=== PATIENT | male | born 1985 | race Caucasian/White ===

== ENCOUNTER 2021-01-19 15:13 | Emergency (ER) | payer SELFPAY ==
--- NOTE | 2021-01-19 15:15 | DI.RAD_ITS ---
EXAM: XR TOE LT GREAT CLINICAL HISTORY: pain s/p dropping large item on toe. TECHNIQUE: 2D digital imaging was performed. COMPARISON: No exams were available for comparison FINDINGS: There is no evidence of fracture nor dislocation. No radiopaque foreign body. No osseous lesions. No erosions. IMPRESSION: No fracture evident. DATA REPOSITORY: RADIATION DOSE DELIVERED:
[2021-01-19 15:18] VITALS: BP 131/93; PULSE 64; RESP 17; TEMP 36.5
--- NOTE | 2021-01-19 15:30 | ED.GENADUL_ITS ---
Discharge Plan Disposition Patient Disposition: HOME Condition: Stable Discharge Details Clinical Impression: Contusion of left great toe without damage to nail Primary Care Provider: None,None ED Provider: Matehus Ordonez Home Meds and New Rx's Prescriptions: Continued ibuprofen 800 MG tablet 800 mg PO TID Qty: 30 RF: 0 No Action cyclobenzaprine 10 MG tablet 10 mg PO BID Qty: 20 RF: 0 hydrocodone-acetaminophen 1 EACH tablet 1 - 2 ea PO Q4H PRN PRNQty: 20 RF: 0 Discharge Instructions Instructions: Contusion in Adults (ED) Additional Instructions: if pain continues in a week follow up with your primary care provider you can take 1000mg tylenol and 600mg ibuprofen every 6 hours as needed for pain Medical Decision Making 35 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 Denies falling or other injuries. He has no pain in the left ankle or mid foot, and only has pain in the left big toe. Has mild redness of the distal left big toe, normal sensation and can fully move the toe. Has pain with palpation to the distal left big toe, no tenderness elsewhere and normal pulses. Suspect contusion but will xray to evaluate for possible fracture xray unremarkable, suspect bone contusion, will discharge and advised to follow up with pcp if pain continues in a week Differential Diagnosis Differential Diagnosis: contusion, fracture, dislocation Imaging Data Radiologic Study: Attestation: I personally reviewed and interpreted this imaging study as follows: Imaging: X-Ray Radiologist's impression: no acute findings HPI General Mode of arrival: ambulatory . Date/Time Provider Initiated Documentation: 01/19/21 15:23 . Limitations to Documentation: no limitations . Information obtained by: patient . History of Present Illness 35 year old M presents to the emergency department with the chief complaint of left big toe pain, described as moderate, and it has been constant. Rest improves symptom(s), Other factors that worsen symptoms (walking on it) . Patient notes no other symptoms.. Related Data Home Medications Medication Instructions Recorded Confirmed cyclobenzaprine 10 mg PO BID #20 tab 12/24/13 12/26/13 ibuprofen 800 mg PO TID #30 tablet 12/24/13 12/26/13 hydrocodone-acetaminophen 1 - 2 ea PO Q4H PRN PRN #20 tablet 12/26/13 Previous Rx's Medication Instructions Recorded cyclobenzaprine 10 mg PO BID #20 tab 12/24/13 ibuprofen 800 mg PO TID #30 tablet 12/24/13 hydrocodone-acetaminophen 1 - 2 ea PO Q4H PRN PRN #20 tablet 12/26/13 Allergies Allergy/AdvReac Type Severity Reaction Status Date / Time No Known Allergies Allergy Unverified 12/24/13 09:12 General Stated Complaint: Orthopedic FRANKO: 4 Review of Systems All systems reviewed & are unremarkable except as noted in HPI and below Constitutional Constitutional: Denies chills, Denies fever(s) and Denies weakness Cardiovascular Cardiovascular: Denies chest pain and Denies dyspnea Respiratory Respiratory: Denies cough and Denies dyspnea Gastrointestinal Gastrointestinal: Denies abdominal pain, Denies nausea and Denies vomiting Neurologic Neurologic: Denies weakness Psychiatric Psychiatric: Denies depression PFSH Social History Smoking/Tobacco Use Status: Never Smoking risk assessment performed?: Yes Drug use: Never Substance use type: does not use Do you feel safe at home: Yes Do you feel safe in your relationship?: Yes Exam Const General: no acute distress Orientation: alert HENMT Head: normal to inspection Ears: external ears normal General nose exam: external nose normal Mouth: moist mucous membranes Eyes General: appearance normal, both eyes and all related structures Neck Neck: normal visual inspection Resp Effort & Inspection: normal respiratory effort and able to speak in complete sentences Cardio Rate: regular rate Skin General skin exam: no rashes or lesions noted Neuro General: patient alert and patient oriented x3 Extrem General: capillary refill normal Psych Mental Status: mental status grossly normal Course Vital Signs Vital signs: Vital Signs Temperature 36.5 C 01/19/21 15:18 Pulse 64 01/19/21 15:18 Respiratory Rate 17 01/19/21 15:18 Blood Pressure 131/93 H 01/19/21 15:18 Temperature 36.5 C 01/19/21 15:18 Temperature Source Temporal Artery Scan 01/19/21 15:18 Pulse 64 01/19/21 15:18 Respiratory Rate 17 01/19/21 15:18 Respiratory Effort 01/19/21 15:21 Blood Pressure 131/93 H 01/19/21 15:18 Blood Pressure Position Sitting 01/19/21 15:18 Oxygen Delivery Method Room Air 01/19/21 15:18 Oxygen Flow Rate 0 01/19/21 15:18 Pain Level 2 01/19/21 15:22 Comment 01/19/21 15:18
[2021-01-19] MEDS: Ibuprofen 600 MG TAB PO (15:32)
== END 2021-01-19 16:17 | disposition home or self-care (01) ==
LOC: ER 16:16
PROVIDERS: Emergency Provider Emergency Medicine; PCP Family Medicine
DX: S90.112A Contusion of left great toe without damage to nail, initial encounter (principal); W20.8XXA Other cause of strike by thrown, projected or falling object, initial encounter
CPT/HCPCS: 99283; 73660

== ENCOUNTER 2023-01-06 14:01 | Emergency (ER) | payer OTHER, SELFPAY ==
[2023-01-06 14:07] VITALS: BP 137/79; PULSE 80; RESP 18; TEMP 36.6; O2SAT 97
--- NOTE | 2023-01-06 14:23 | W.ED.GENAD ---
Discharge Plan Disposition Patient Disposition: Home Condition: Improving Discharge Details Clinical Impression: Thoracic back pain, Lumbar back pain Primary Care Provider: Emi,Local ED Provider: Elyssa Mendoza Home Meds and New Rx's Prescriptions: New methocarbamol 500 mg tablet 500 mg PO Q6H PRN (Reason: muscle spasm) Qty: 14 0RF prednisone 20 mg tablet See Rx Instructions .ROUTE .COMPLEX Qty: 18 0RF Rx Instructions: Take 3 tabs daily for 3 days, then 2 tabs daily for 3 days, then 1 tab daily for 3 days. Continued tizanidine 2 mg tablet 2 mg PO HS PRN (Reason: muscle spasticity) Qty: 20 0RF Rx Instructions: Si-2 tabs po at HS PRN. ibuprofen 800 MG tablet 800 mg PO TID Qty: 30 0RF Discharge Instructions Instructions: Back Pain (ED), Spondylolisthesis (ED) Additional Instructions: The CT scan of your thoracic spine showed no acute fracture. The CT scan of your lumbar spine showed grade 1 spondylolisthesis of L5 on S1 which is a type of slippage of the vertebrae in your spine forward onto the bone below it. This can be secondary to an new or old injury or potentially a genetic predisposition for this condition. Alternate ice and heat to the affected area(s) several times daily for 20 minutes at a time. Alternate tylenol and motrin as needed and directed for pain. Take the oxycodone you were given for home as needed and directed for pain not relieved with Tylenol or Motrin. Prescriptions for steroids and muscle relaxers have been sent electronically to your pharmacy to take as directed. Follow-up with your scheduled appointment with occupational medicine this week. Return immediately to the emergency department if you develop any worsening or new concerning symptoms such as worsening pain, loss of bowel or bladder function, inability to ambulate or any other concerns. Discharge Data Discharge Date/Time-TO BE ENTERED AT DEPARTURE: 01/06/23 18:20 Discharge Physician: Elsysa Mendoza Medical Decision Making [id number] -- 37-year-old male with report of original blunt injury to his back status post mechanical fall on December 11, 2022 with reported outpatient negative T-spine x-rays presents with worsening of his mid back pain after hearing a crack while turning while sitting in a chair today. Also has had midline L-spine pain since his original injury. Also admits to paresthesias in his toes and left hand since his original injury and states this is no worse today. No other cauda equina symptoms. Has been followed by occupational medicine with no relief with NSAIDs, Flexeril, tizanidine. Vitals within normal limits. Patient appears uncomfortable but nontoxic. He has tenderness palpation to his mid line lower T-spine and midline lumbar spine. He also has tenderness palpation to his left thoracic paraspinal region. There is no evidence of rash, cellulitis or trauma. He has no focal deficits. History and presentation does not appear consistent with cauda equina syndrome although discussed the possibility of disc herniation with his feet paresthesias. He has no midline C-spine tenderness but has had radiation of pain to his bilateral cervical paraspinal region. He has no focal deficits in his upper or lower extremities. Do not see an indication for CT C-spine imaging but will proceed with CT T and L-spine imaging to rule out obvious fracture or possible disc herniation. Discussed that patient will likely need an MRI of his T or L-spine if his paresthesias or pain persists or worsens. Will give a dose of IM Toradol, oral prednisone, oral Valium and oxycodone and reassess. 1800 -- delay in disposition due to critical patient in the ED. CT thoracic spine no acute findings. CT lumbar spine notes grade 1 spondylolisthesis of L5 on S1 secondary to L5 spondylolysis in addition to disc bulge at L4-5 and L5-S1. Pt reassessed and he says his pain is better and he feels comfortable going home. Prescriptions for steroids and muscle relaxer sent electronically to his pharmacy. He was given an oxycodone bottle to go. Patient has an appointment with occupational medicine this week. Discussed that he may need an MRI if symptoms do not improve or worsen. Usual and customary return precautions given prior to discharge. Medical Records Medical records reviewed: Yes I reviewed the patient's medical records. Imaging Data Radiologic Study: Radiologist's impression: CT Thoracic Spine Without Contrast Exam date and time: 01/06/2023 3:25 PM Age: 37 years old Clinical indication: Other: Mid t-l spine pain, R/O FX; ; Other: Fall on back 1 mo ago, new pain mid tspine today TECHNIQUE: Imaging protocol: Computed tomography of the thoracic spine without contrast. COMPARISON: No relevant prior studies available. FINDINGS: Bones/joints: No acute fracture. Normal alignment. Small osteophytes and mild disc space narrowing in the upper thoracic spine. No obvious disc contour abnormalities. No severe spinal canal stenosis. No significant neural foraminal narrowing. Soft tissues: Unremarkable. Lungs: The visualized lungs are clear. IMPRESSION: No acute findings CT Lumbar Spine Without Contrast Exam date and time: 01/06/2023 3:25 PM Age: 37 years old Clinical indication: Other: Mid t-l spine pain, R/O FX; ; Other: Fall on back 1 mo ago, new pain mid tspine today TECHNIQUE: Imaging protocol: Computed tomography of the lumbar spine without contrast. COMPARISON: No relevant prior studies available. FINDINGS: Bones/joints: No acute fracture. 3 mm anterolisthesis of L5 on S1. Bilateral L5 spondylolysis. Disc bulge at L4-L5 and L5-S1. No significant spinal stenosis. No significant neural foraminal narrowing. Soft tissues: Unremarkable. IMPRESSION: 1. ? No acute fracture. 2. ? Grade 1 spondylolisthesis of L5 on S1 secondary to L5 spondylolysis HPI General Mode of arrival: ambulatory. Date/Time Provider Initiated Documentation: 01/06/23 14:21. Limitations to Documentation: no limitations. Information obtained by: patient. HPI Narrative: Patient is a 37-year-old male who presents with worsening of his mid back pain status post an injury 2 weeks ago after sitting today and turning and feeling a crack in his mid back. Patient states he was sitting in a chair today and turned slightly sideways and felt a crack in his mid back. He denies any chest pain, difficulty breathing or abdominal pain. Patient states he works for [employer] and on December 11 of last month he slipped on an [employer] driveway while working and landed on his back. He states 1 week later he was seen at [facility] and had negative thoracic spine x-rays. He states he then followed up with occupational medicine who placed him on cyclobenzaprine and NSAIDs without relief. Patient states he recently followed up again and was placed on tizanidine without relief. Patient states he has been having difficulty sleeping or finding a comfortable position due to his back pain. Patient states his initial pain last month is in his mid T-spine and also in his mid L-spine. He states she was having tingling in his left foot last month and is now feeling tingling in both toes. He is also admitting to tingling in his left hand. Patient has not taken any medication for pain today. He denies any fever, bowel or bladder incontinence, saddle anesthesia, leg pain. Related Data Home Medications Medication Instructions Recorded Confirmed ibuprofen 800 mg tablet 800 mg PO TID #30 tabs 12/24/13 01/06/23 tizanidine 2 mg tablet 2 mg PO HS PRN muscle spasticity 12/26/22 01/06/23 #20 tabs methocarbamol 500 mg tablet 500 mg PO Q6H PRN muscle spasm #14 01/06/23 tabs prednisone 20 mg tablet See Rx Instructions .Route 01/06/23 .COMPLEX #18 tabs Previous Rx's Medication Instructions Recorded ibuprofen 800 mg tablet 800 mg PO TID #30 tabs 12/24/13 tizanidine 2 mg tablet 2 mg PO HS PRN muscle spasticity 12/26/22 #20 tabs methocarbamol 500 mg tablet 500 mg PO Q6H PRN muscle spasm #14 01/06/23 tabs prednisone 20 mg tablet See Rx Instructions .Route 01/06/23 .COMPLEX #18 tabs Allergies Allergy/AdvReac Type Severity Reaction Status Date / Time No Known Allergies Allergy Verified 01/06/23 14:13 General Stated Complaint: Nk/Back Pain FRANKO: 3 Review of Systems All systems reviewed & are unremarkable except as noted in HPI and below Constitutional Constitutional: Reports as per HPI, Denies chills and Denies fever(s) Eyes Eyes: Denies blurry vision ENT Ears, Nose, Mouth, and Throat: Denies dizziness, Denies sore throat and Denies throat swelling Cardiovascular Cardiovascular: Denies chest pain and Denies dyspnea Respiratory Respiratory: Denies cough and Denies dyspnea Gastrointestinal Gastrointestinal: Denies abdominal pain, Denies diarrhea and Denies vomiting Genitourinary Genitourinary: Denies hematuria and Denies dysuria Musculoskeletal Musculoskeletal: Reports back pain, Denies numbness and Reports tingling (b/l toes, fingers of left hand for 3 weeks) Integumentary/Breasts Skin/Breast: Denies lesions and Denies rash Neurologic Neurologic: Denies dizziness, Denies localized weakness, Denies numbness and Reports tingling (b/l toes, fingers of left hand for 3 weeks) Allergic/Immunologic Allergic/Immunologic: Denies throat swelling PFSH All Active Problems (Updated 01/06/23 @ 18:03 by Elyssa Mendoza DO) Acute chest wall pain (Acute) Strain of left groin (Acute) Lumbar back pain (Acute) Lumbar pain with radiation down leg (Acute) Thoracic back pain (Acute) Contusion of left great toe without damage to nail (Acute) Medical History (Updated 01/06/23 @ 18:03 by Elyssa Mendoza DO) No significant past medical history Surgical History (Updated 01/06/23 @ 15:04 by Elyssa Mendoza DO) H/O wisdom tooth extraction Social History Smoking/Tobacco Use Status: Never Smoking risk assessment performed?: Yes Drug use: Never Substance use type: does not use Do you feel safe at home: Yes Do you feel safe in your relationship?: Yes Exam Const General: cooperative, uncomfortable and no acute distress Orientation: alert, awake and oriented x3 HENMT Head: normal to inspection Face and sinus: normal facial exam Eyes General: appearance normal, both eyes and all related structures Pupils: PERRL EOM: EOM intact bilaterally Neck Neck: normal visual inspection and No submandibular swelling Lymphatic: no lymphadenopathy noted Chest Chest: normal inspection of the chest and no tenderness Resp Effort & Inspection: normal respiratory effort and able to speak in complete sentences Auscultation: clear to auscultation bilaterally Cardio Rate: regular rate Rhythm: regular rhythm GI Inspection: normal to inspection Palpation: soft, not firm, not rigid and nontender Auscultation: hypoactive bowel sounds Male General Exam: Yes normal external exam Back/Spine/Pelvis Thoracic/Lumbar Spine: thoracic and lumbar spine normal to inspection Pelvis: no pain with anterior-posterior compression Back/spine/pelvis image: 1. Tenderness to palpation. No erythema, edema, ecchymosis, rash, lesions or step-off. 2. Additional localized area of tenderness to palpation without rash, cellulitis or evidence of trauma. 3. Tenderness to palpation. No evidence of rash, cellulitis or trauma. Skin General skin exam: no rashes or lesions noted Neuro General: patient alert, patient awake and patient oriented x3 Cognition: normal cognition Speech: speech normal Motor: muscle tone normal throughout and strength 5/5 throughout Sensory Exam: no sensory deficits noted DTR's: Rt Patellar: 1+, Lt Patellar: 1+, Rt Ankle: 1+ and Lt Ankle: 1+ Plantar Reflexes: Equivocal: bilateral (negative babinski b/l ) Extrem General: normal to inspection, full ROM, capillary refill normal, no calf tenderness bilaterally and no edema Other: B/L DP/PT pulses intact. Psych Appearance: grossly normal Mental Status: mental status grossly normal Speech and Movement: speech and movement normal Affect: normal affect Course Vital Signs Vital signs: Vital Signs Temperature 98 F 01/06/23 14:07 Pulse 80 01/06/23 14:07 Respiratory Rate 18 01/06/23 14:07 Blood Pressure 137/79 01/06/23 14:07 Pulse Oximetry 97 01/06/23 14:07 Temperature 98 F 01/06/23 14:07 Temperature Source Oral 01/06/23 14:07 Pulse 80 01/06/23 14:07 Respiratory Rate 18 01/06/23 14:07 Respiratory Effort Normal, Non-Labored 01/06/23 14:14 Blood Pressure 137/79 01/06/23 14:07 Blood Pressure Position Sitting 01/06/23 14:07 Pulse Oximetry 97 01/06/23 14:07 Oxygen Delivery Method Room Air 01/06/23 14:07 Oxygen Flow Rate 0 01/06/23 14:07 PAWSS Have you Been Recently Intoxicated or Drunk Within the Last 30 days?: No Have you Ever Experienced Previous Episodes of Alcohol Withdrawal?: No Have you ever Experienced Withdrawal Seizures?: No Have you ever Experienced Delirium Tremens(DT)s?: No Have you ever undergone Alcohol Rehabilitation Treatment (i.e, inpt ot outpatient treatment programs)?: No Have you ever Experienced Blackouts?: No Have you ever Combined Alcohol with other Downers within the last 90 days?: No Have you ever Combined Alcohol with any other Substance of Abuse during the last 90 days?: No Positive Blood Alcohol level on Presentation? [PCS.BAL]: No Evidence of Increased Autonomic Activity (i.e. HR>120, tremor, sweating, agitation, nausea)?: No Result: 0
--- NOTE | 2023-01-06 14:45 | DI.CT_ITS ---
Exam(s) CT THORACIC LUMBAR SPINE WO EXAM: CT THORACIC LUMBAR SPINE WO CLINICAL HISTORY: mid T-L spine pain, r/o fx;. TECHNIQUE: Imaging Protocol: Axial computed tomography images with coronal and sagittal reformatted images were created and reviewed. CONTRAST MATERIAL: Intravenous: None Oral: None COMPARISON: No exams were available for comparison FINDINGS: THORACIC SPINAL COLUMN: No evidence of fracture nor listhesis. No facet malalignment. No prominent facet degenerative changes. No compromise of the spinal canal. Anterior osseous lipping noted at T5 -6 level indicating element of degenerative disc disease at this level. LUMBOSACRAL SPINAL COLUMN: No compression fractures. There are bilateral pars defects at L5 level. There is mild anterolisthesis of L5 upon S1 and mild disc space narrowing at this level. There is ap proximately 7 millimeters anterior slippage of L5 upon S1. No other levels of listhesis. No promine nt facet arthropathy. No facet malalignment. IMPRESSION: 1. No significant osseous findings in the thoracic spinal column. 2. In the lumbosacral spine there is 7 millimeters anterolisthesis L5 upon S1 due to bilateral pars d efects at L5 level. No acute fractures evident. RADIATION DOSE DELIVERED: 1,347.21mGy.cm Total DLP DATA REPOSITORY: All CT scans at this facility are submitted to the National Radiology Data Registry (NRDR) Dose Index Registry (DIR) with the [employer] (ACR). RADIATION OPTIMIZATION: All CT scans at this facility use at least one of these dose optimization te chniques: automated exposure control; mA and/or kV adjustment per patient size (includes targeted exa ms where dose is matched to clinical indication); or iterative reconstruction.
[2023-01-06] MEDS: Ketorolac 60 MG/2 ML VIAL IM (15:09)
[2023-01-06] MEDS: predniSONE 20 MG TAB 60 MG PO (15:09)
[2023-01-06] MEDS: oxyCODONE 5 MG TAB PO (15:09)
[2023-01-06] MEDS: diazePAM 5 MG TAB PO (15:10)
--- NOTE | 2023-01-06 15:59 | DI.VRAD_ITS ---
PROCEDURE INFORMATION: Exam: CT Thoracic Spine Without Contrast Exam date and time: 01/06/2023 3:25 PM Age: 37 years old Clinical indication: Other: Mid t-l spine pain, R/O FX; ; Other: Fall on back 1 mo ago, new pain mid tspine today TECHNIQUE: Imaging protocol: Computed tomography of the thoracic spine without contrast. COMPARISON: No relevant prior studies available. FINDINGS: Bones/joints: No acute fracture. Normal alignment. Small osteophytes and mild disc space narrowing in the upper thoracic spine. No obvious disc contour abnormalities. No severe spinal canal stenosis. No significant neural foraminal narrowing. Soft tissues: Unremarkable. Lungs: The visualized lungs are clear. IMPRESSION: No acute findings PROCEDURE INFORMATION: Exam: CT Lumbar Spine Without Contrast Exam date and time: 01/06/2023 3:25 PM Age: 37 years old Clinical indication: Other: Mid t-l spine pain, R/O FX; ; Other: Fall on back 1 mo ago, new pain mid tspine today TECHNIQUE: Imaging protocol: Computed tomography of the lumbar spine without contrast. COMPARISON: No relevant prior studies available. FINDINGS: Bones/joints: No acute fracture. 3 mm anterolisthesis of L5 on S1. Bilateral L5 spondylolysis. Disc bulge at L4-L5 and L5-S1. No significant spinal stenosis. No significant neural foraminal narrowing. Soft tissues: Unremarkable. IMPRESSION: 1. No acute fracture. 2. Grade 1 spondylolisthesis of L5 on S1 secondary to L5 spondylolysis Dictated and Authenticated by: Julio Haynes MD. Ordering:RYAN Bergeron MD
[2023-01-06] MEDS: Methocarbamol 500 MG TAB 1000 MG PO (18:15)
[2023-01-06 18:18] VITALS: BP 126/68; PULSE 82; RESP 18; TEMP 36.9; O2SAT 98
== END 2023-01-06 18:20 | disposition home or self-care (01) ==
PROVIDERS: Emergency Provider Physician Assistant
DX: M54.6 Pain in thoracic spine (principal); M54.59 Other low back pain
CPT/HCPCS: 96372; 99284; 72128; 72131; J1885; J7512

== ENCOUNTER 2023-01-17 12:10 | Emergency (ER) | payer OTHER, SELFPAY ==
--- NOTE | 2023-01-17 12:00 | RT.EKG_ITS ---
APPROVED REPORT Exam: Resting ECG Reason for Exam: rapid heart rate Patient Location: E HR:89 bpm ECG Measurements Heart Rate 89 AXIS IL 128 P 20 QRSd 98 QRS -36 QT 338 T 9 QTc 412 Conclusion Sinus rhythm...normal P axis, V-rate 60- 99. Sinus. No STEMi. I have reviewed and interpreted ECG and agree with software generated interpretation.
[2023-01-17 12:23] VITALS: BP 150/96; PULSE 87; RESP 18; TEMP 36.8; O2SAT 93
[2023-01-17 12:30] VITALS: RESP 16
[2023-01-17 12:39] VITALS: BP 105/66
[2023-01-17 12:42] VITALS: BP 117/79
--- NOTE | 2023-01-17 12:45 | DI.CT_ITS ---
Exam(s) CT HEAD CERVICAL SPINE WO EXAM: CT HEAD CERVICAL SPINE WO CLINICAL HISTORY: Headache, Neck Pain. TECHNIQUE: Imaging Protocol: Axial computed tomography images with coronal and sagittal reformatted images were created and reviewed COMPARISON: No exams were available for comparison FINDINGS: Head CT Ventricles and Extra axial spaces: Normal in size and morphology for the patient's age. Hemorrhage: None. Cerebral parenchyma: Normal. Midline shift: None. Brainstem/Cerebellum: Normal. Calvarium: Normal. Visualized Paranasal sinuses/Mastoids: Clear. Soft tissue swelling over right scalp. Cervical Spine CT BONES: Vertebral body heights are maintained. Alignment is normal. There is no evidence of acute frac ture. Mild degenerative disc changes and facet degenerative changes are seen . SOFT TISSUES: No paraspinal hematoma. The airway appears intact. No pneumothorax is seen at the lung apices. IMPRESSION: Head CT: No acute abnormality. C-spine CT: Degenerative changes, no acute abnormality. RADIATION DOSE DELIVERED: 1,647.49mGy.cm Total DLP DATA REPOSITORY: All CT scans at this facility are submitted to the National Radiology Data Registry (NRDR) Dose Index Registry (DIR) with the [employer] (ACR). RADIATION OPTIMIZATION: All CT scans at this facility use at least one of these dose optimization te chniques: automated exposure control; mA and/or kV adjustment per patient size (includes targeted exa ms where dose is matched to clinical indication); or iterative reconstruction.
--- NOTE | 2023-01-17 12:55 | W.ED.GENAD ---
Discharge Plan Disposition Patient Disposition: Home Condition: Stable Discharge Details Clinical Impression: Degenerative joint disease of cervical spine, Headache, tension-type ED Provider: Jesusita Tolliver Home Meds and New Rx's Prescriptions: Continued amitriptyline 25 mg tablet 25 mg PO QHS Qty: 25 0RF tramadol 100 mg tablet 100 mg PO BID PRN (Reason: pain) Qty: 20 0RF ibuprofen 800 MG tablet 800 mg PO TID Qty: 30 0RF methocarbamol 500 mg tablet 500 mg PO Q6H PRN (Reason: muscle spasm) Qty: 14 0RF prednisone 20 mg tablet See Rx Instructions .ROUTE .COMPLEX Qty: 18 0RF Rx Instructions: Take 3 tabs daily for 3 days, then 2 tabs daily for 3 days, then 1 tab daily for 3 days. Discharge Instructions Instructions: Degenerative Disc Disease (ED), General Headache (ED) Additional Instructions: You may try topical Voltaren or diclofenac cream which you can get [id number]. Please take Tylenol or Ibuprofen with food every 4-6 hours as needed for pain and swelling. CT is largely within normal limits there is some degenerative changes noted on the cervical spine or your neck bones, this is just mild amount of arthritis. EKG and labs are largely within normal limits regarding your heart. Follow up with primary care provider in 3-5 days. Return to ED sooner if any worsening or concerns. Increase oral fluids. You are placed on care management list to assist you in getting a follow-up appointment with primary care provider. Stand Alone Forms: Work Release Discharge Data Discharge Date/Time-TO BE ENTERED AT DEPARTURE: 01/17/23 15:55 Medical Decision Making 37-year-old male presents to the ER with a chief complaint of headache frontal pressure type headache which began while at physical therapy earlier today. He also reports some sharp left arm pain and tingling. He reports that approximately a week ago he was seen for a lumbar back strain after falling and landing on his buttocks on some ice. He did have a CT T and L-spine at that time. Has been placed on oxycodone and muscle relaxers with little to no relief. He reports that today he was in the pool for physical therapy and began having pressure across his forehead. He denies any nausea vomiting no abdominal pain no fever or chills. CT head C-spine without contrast ordered, CBC CMP urinalysis, troponin ordered. CBC shows white blood cell count of 12.66, please in BUN 20 creatinine 1.1 GFR 88 glucose 111 ALT slightly elevated at 68 troponin less than 50 urinalysis within normal limits drug screen negative except for tricyclic antidepressants which patient is on. Toradol 30 mg IV ordered. Patient has remained hemodynamically stable alert and oriented and ambulatory while here in the department. Patient does have some degenerative changes noted on his C-spine. This time I do not think that serial troponins are necessary due to age less than 40 and no significant cardiac history. Patient does have a family history is father of an HI at age 50. Discussed results with patient who verbalized understanding discussed home care and follow-up care. This text was generated using [employer] dictation system, please disregard any oddities of phrase or misspellings. Imaging Data Radiologic Study: Imaging: CT Scan Radiologist's impression: FINDINGS: Head CT Ventricles and Extra axial spaces: Normal in size and morphology for the patient's age. Hemorrhage: None. Cerebral parenchyma: Normal. Midline shift: None. Brainstem/Cerebellum: Normal. Calvarium: Normal. Visualized Paranasal sinuses/Mastoids: Clear. Soft tissue swelling over right scalp. Cervical Spine CT BONES: Vertebral body heights are maintained. Alignment is normal. There is no evidence of acute fracture. Mild degenerative disc changes and facet degenerative changes are seen . SOFT TISSUES: No paraspinal hematoma. The airway appears intact. No pneumothorax is seen at the lung apices. IMPRESSION: Head CT: No acute abnormality. C-spine CT: Degenerative changes, no acute abnormality. Lab Data Lab results reviewed: Yes I reviewed the patient's lab results. Labs: Laboratory Tests Range/Units 01/17/23 01/17/23 01/17/23 12:32 12:32 12:32 WBC (4.4-10.8) 10^3/uL 12.66 H RBC (4.36-5.78) 10^6/uL 5.35 Hgb (13.5-17.5) g/dL 16.4 Hct (40.0-50.0) % 47.5 MCV (80-95) fL 89 MCH (27.0-33.0) pg 30.7 MCHC (32.0-36.0) % 34.5 RDW (11.8-14.1) % 11.9 Plt Count (130-400) 10^3/uL 297 MPV (8.0-11.0) fL 9.2 Immature Gran % 0.6 Neutrophils % 80.0 Lymphocytes % 13.9 Monocytes % 4.9 Eosinophils % 0.3 Basophils % 0.3 Nucleated RBC % (0.0-0.3) % 0.0 Absolute Neutrophils (1.2-6.7) 10^3/uL 10.13 H Absolute Lymphocytes (1.2-3.4) 10^3/uL 1.76 Absolute Monocytes (0.1-0.8) 10^3/uL 0.62 Absolute Eosinophils (0.0-0.7) 10^3/uL 0.04 Absolute Basophils (0.0-0.2) 10^3/uL 0.04 Sodium (136-145) mmol/L 136 Potassium (3.5-5.1) mmol/L 4.3 Chloride (98-107) mmol/L 101 Carbon Dioxide (21.0-32.0) mmol/L 30.9 Anion Gap (3-11) mmol/L 4.1 BUN (7-18) mg/dL 20 H Creatinine (0.70-1.30) mg/dL 1.1 Est GFR (CKD-EPI 2020) (mL/min/1.73m2) 88.67 Glucose (74-106) mg/dL 111 H Calcium (8.5-10.1) mg/dL 9.8 Total Bilirubin (0.2-1.0) mg/dL 0.6 AST (15-37) U/L 25 ALT (16-63) U/L 68 H Alkaline Phosphatase (46-116) U/L 88 Troponin I (<or=60) ng/L < 50 Total Protein (6.4-8.2) g/dL 8.5 H Albumin (3.4-5.0) g/dL 4.6 Urine Color (Yellow) Urine Clarity (Clear) Urine pH (5-8) Ur Specific [place] (1.005-1.025) Urine Protein (Negative) mg/dL Urine Ketones (Negative) mg/dL Urine Blood (Negative) Urine Nitrite (Negative) Urine Bilirubin (Negative) Urine Urobilinogen (Up to 0.2) mg/dL Ur Leukocyte Esterase (Negative) Urine Glucose (Negative) mg/dL Urine Opiates Screen (Negative) Urine Methadone Screen (Negative) Ur Barbiturates Screen (Negative) Ur Tricyclics Screen (Negative) Ur Amphetamines Screen (Negative) U Benzodiazepines Scrn (Negative) Urine Cocaine Screen (Negative) Ur THC Screen (Negative) Range/Units 01/17/23 01/17/23 13:15 13:15 WBC (4.4-10.8) 10^3/uL RBC (4.36-5.78) 10^6/uL Hgb (13.5-17.5) g/dL Hct (40.0-50.0) % MCV (80-95) fL MCH (27.0-33.0) pg MCHC (32.0-36.0) % RDW (11.8-14.1) % Plt Count (130-400) 10^3/uL MPV (8.0-11.0) fL Immature Gran % Neutrophils % Lymphocytes % Monocytes % Eosinophils % Basophils % Nucleated RBC % (0.0-0.3) % Absolute Neutrophils (1.2-6.7) 10^3/uL Absolute Lymphocytes (1.2-3.4) 10^3/uL Absolute Monocytes (0.1-0.8) 10^3/uL Absolute Eosinophils (0.0-0.7) 10^3/uL Absolute Basophils (0.0-0.2) 10^3/uL Sodium (136-145) mmol/L Potassium (3.5-5.1) mmol/L Chloride (98-107) mmol/L Carbon Dioxide (21.0-32.0) mmol/L Anion Gap (3-11) mmol/L BUN (7-18) mg/dL Creatinine (0.70-1.30) mg/dL Est GFR (CKD-EPI 2020) (mL/min/1.73m2) Glucose (74-106) mg/dL Calcium (8.5-10.1) mg/dL Total Bilirubin (0.2-1.0) mg/dL AST (15-37) U/L ALT (16-63) U/L Alkaline Phosphatase (46-116) U/L Troponin I (<or=60) ng/L Total Protein (6.4-8.2) g/dL Albumin (3.4-5.0) g/dL Urine Color (Yellow) Yellow Urine Clarity (Clear) Clear Urine pH (5-8) 7.0 Ur Specific [place] (1.005-1.025) 1.025 Urine Protein (Negative) mg/dL Negative Urine Ketones (Negative) mg/dL Negative Urine Blood (Negative) Negative Urine Nitrite (Negative) Negative Urine Bilirubin (Negative) Negative Urine Urobilinogen (Up to 0.2) mg/dL 0.2 Ur Leukocyte Esterase (Negative) Negative Urine Glucose (Negative) mg/dL Negative Urine Opiates Screen (Negative) Negative Urine Methadone Screen (Negative) Negative Ur Barbiturates Screen (Negative) Negative Ur Tricyclics Screen (Negative) Positive A Ur Amphetamines Screen (Negative) Negative U Benzodiazepines Scrn (Negative) Negative Urine Cocaine Screen (Negative) Negative Ur THC Screen (Negative) Negative HPI General Mode of arrival: ambulatory. Date/Time Provider Initiated Documentation: 01/17/23 12:20. Limitations to Documentation: no limitations. Information obtained by: patient, RN notes reviewed and old records reviewed. HPI Narrative: 37-year-old male presents to the ER with a chief complaint of headache frontal pressure type headache which began while at physical therapy earlier today. He also reports some sharp left arm pain and tingling. He reports that approximately a week ago he was seen for a lumbar back strain after falling and landing on his buttocks on some ice. He did have a CT T and L-spine at that time. Has been placed on oxycodone and muscle relaxers with little to no relief. He reports that today he was in the pool for physical therapy and began having pressure across his forehead. He denies any nausea vomiting no abdominal pain no fever or chills. He just recently finished prednisone for the back pain. He also reports some palpitations. Related Data Home Medications Medication Instructions Recorded Confirmed ibuprofen 800 mg tablet 800 mg PO TID #30 tabs 12/24/01/06/23 methocarbamol 500 mg tablet 500 mg PO Q6H PRN muscle spasm #14 01/06/23 01/10/23 tabs prednisone 20 mg tablet See Rx Instructions .Route 01/06/23 01/10/23 .COMPLEX #18 tabs amitriptyline 25 mg tablet 25 mg PO QHS #25 tabs 01/10/23 01/10/23 tramadol 100 mg tablet 100 mg PO BID PRN pain #20 tabs 01/14/23 Previous Rx's Medication Instructions Recorded ibuprofen 800 mg tablet 800 mg PO TID #30 tabs 12/24/13 methocarbamol 500 mg tablet 500 mg PO Q6H PRN muscle spasm #14 01/06/23 tabs prednisone 20 mg tablet See Rx Instructions .Route 01/06/23 .COMPLEX #18 tabs amitriptyline 25 mg tablet 25 mg PO QHS #25 tabs 01/10/23 tramadol 100 mg tablet 100 mg PO BID PRN pain #20 tabs 01/14/23 Allergies Allergy/AdvReac Type Severity Reaction Status Date / Time No Known Allergies Allergy Verified 01/17/23 12:28 General Stated Complaint: Headache FRANKO: 3 Review of Systems All systems reviewed & are unremarkable except as noted in HPI and below Constitutional Constitutional: Reports as per HPI and Reports headache(s) ENT Ears, Nose, Mouth, and Throat: Reports headache(s) Cardiovascular Cardiovascular: Reports radiating jaw, neck or arm pain and Reports palpitations Neurologic Neurologic: Reports headache(s) Endocrine Endocrine: Reports palpitations PFSH All Active Problems (Updated 01/17/23 @ 15:25 by Jesusita Tolliver NP) Degenerative joint disease of cervical spine (Acute) Headache, tension-type (Acute) Acute chest wall pain (Acute) Strain of left groin (Acute) Lumbar back pain (Acute) Lumbar pain with radiation down leg (Acute) Thoracic back pain (Acute) Contusion of left great toe without damage to nail (Acute) Medical History No significant past medical history Surgical History H/O wisdom tooth extraction Social History Smoking/Tobacco Use Status: Never Smoking risk assessment performed?: Yes Alcohol Intake: current Alcohol Intake frequency: a few times a week Alcohol type: beer Drug use: Never Substance use type: does not use Do you feel safe at home: Yes Do you feel safe in your relationship?: Yes Exam Narrative Exam Narrative: Constitutional: Alert and oriented x3. Appears stated age. Normal body habitus. Head: Normocephalic, no trauma. Eyes: Pupils PERRL, Red reflex noted, EOM's intact. Eyelids symmetrical without lesions, discharge, or swelling. ENT: Bilateral TM's WNL, External ear normal to inspection, no mastoid TTP, swelling, or erythema, Nasal turbinates WNL, no nasal discharge. Normal dentition, Posterior pharynx WNL, no exudate. Chest: RRR, Normal S1, S2, distal pulses intact. Resp: Lungs clear to auscultation bilaterally, no wheezes, rales, or rhonchi. Abdomen: Soft, non-distended, Normoactive bowel sounds all 4 quads. Musculoskeletal: Normal gait, 5/5 strength to all four extremities. He does have some tenderness with palpation to his C-spine, Skin: No suspicious rashes or lesions. Capillary refill less than 2 sec. Neurologic: Cranial nerves II-XII intact. Alert and oriented x 3. Motor: No deficits noted. Sensory: Intact bilaterally all 4 extremities. Reflexes: DTR's intact bilaterally.. Hematologic/Lymphatic: No ecchymosis, no lymphadenopathy. Course Vital Signs Vital signs: Vital Signs Temperature 36.8 C 01/17/23 12:23 Pulse 87 01/17/23 12:23 Respiratory Rate 18 01/17/23 12:23 Blood Pressure 150/96 H 01/17/23 12:23 Pulse Oximetry 93 01/17/23 12:23 Temperature 36.8 C 01/17/23 12:23 Pulse 87 01/17/23 12:23 Respiratory Rate 16 01/17/23 12:30 Respiratory Effort Normal, Non-Labored 01/17/23 12:30 Respiratory Depth Normal 01/17/23 12:30 Respiratory Pattern Normal 01/17/23 12:30 Blood Pressure 117/79 01/17/23 12:42 Blood Pressure Position Supine 01/17/23 12:23 Pulse Oximetry 93 01/17/23 12:23 Oxygen Delivery Method Room Air 01/17/23 12:23 Oxygen Flow Rate 0 01/17/23 12:23 PAWSS Have you Been Recently Intoxicated or Drunk Within the Last 30 days?: No Have you Ever Experienced Previous Episodes of Alcohol Withdrawal?: No Have you ever Experienced Withdrawal Seizures?: No Have you ever Experienced Delirium Tremens(DT)s?: No Have you ever undergone Alcohol Rehabilitation Treatment (i.e, inpt ot outpatient treatment programs)?: No Have you ever Experienced Blackouts?: No Have you ever Combined Alcohol with other Downers within the last 90 days?: No Have you ever Combined Alcohol with any other Substance of Abuse during the last 90 days?: No Result: 0
[2023-01-17 13:17] LABS: Abs Immature Grans 0.08 10^3/uL (0.0-0.06); Absolute Basophil Count 0.04 10^3/uL (0.0-0.2); Absolute Eosinophil Count 0.04 10^3/uL (0.0-0.7); Absolute Lymphocyte Count 1.76 10^3/uL (1.2-3.4); Absolute Monocyte Count 0.62 10^3/uL (0.1-0.8); Basophils % 0.3; Eosinophils % 0.3; HCT 47.5 % (40.0-50.0); HGB 16.4 g/dL (13.5-17.5); Immature Grans % 0.6; Lymphocytes % 13.9; MCH 30.7 pg (27.0-33.0); MCHC 34.5 % (32.0-36.0); MCV 89 fL (80-95); MPV 9.2 fL (8.0-11.0); Monocytes % 4.9; Platelet Count 297 10^3/uL (130-400); RBC 5.35 10^6/uL (4.36-5.78); RDW 11.9 % (11.8-14.1); RDW-SD 38.1 fL; WBC 12.66 10^3/uL (4.4-10.8)
[2023-01-17 13:18] LABS: Absolute Neutrophil Count 10.13 10^3/uL (1.2-6.7)
[2023-01-17 13:25] LABS: Bilirubin Negative (Negative); Blood Negative (Negative); Clarity Clear (Clear); Glucose Negative (Negative); Ketones Negative (Negative); Leukocyte Esterase Negative (Negative); Nitrite Negative (Negative); Specific Gravity 1.025 (1.005-1.025); Urobilinogen 0.2 mg/dL (Up to 0.2)
[2023-01-17 13:37] LABS: *AMPHETAMINES SCREEN URINE Negative (Negative); *BARBITURATES SCREEN URINE Negative (Negative); *BENZODIAZEPINES SCREEN URINE Negative (Negative); Cannabinoids THC Negative (Negative); Cocaine Screen,Urine Negative (Negative); METHADONE URINE SCREEN Negative (Negative); OPIATES URINE SCREEN Negative (Negative)
[2023-01-17 13:38] LABS: ALT 68 U/L (16-63); AST 25 U/L (15-37); Albumin 4.6 g/dL (3.4-5.0); Alkaline Phosphatase 88 U/L (46-116); Anion Gap 4.1 mmol/L (3-11); BUN 20 mg/dL (7-18); Bilirubin, Total 0.6 mg/dL (0.2-1.0); CO2 30.9 mmol/L (21.0-32.0); CREATININE 1.1 mg/dL (0.70-1.30); Calcium 9.8 mg/dL (8.5-10.1); Chloride 101 mmol/L (98-107); Estimated GFR 88.67 (mL/min/1.73m2); Glucose 111 mg/dL (74-106); Potassium 4.3 mmol/L (3.5-5.1); Sodium 136 mmol/L (136-145); Total Protein 8.5 g/dL (6.4-8.2)
[2023-01-17 13:39] LABS: Tricyclic Antidepressants Positive (Negative)
[2023-01-17 13:43] LABS: Troponin I < 50 ng/L (<or=60)
[2023-01-17] MEDS: Normal Saline 1,000 ML 1000 ML IV (14:35)
[2023-01-17 15:44] VITALS: BP 128/76; PULSE 73; TEMP 37; O2SAT 93
[2023-01-17] MEDS: Ketorolac 30 MG/ML VIAL IVP (15:57)
== END 2023-01-17 15:55 | disposition home or self-care (01) ==
PROVIDERS: Emergency Provider Registered Nurse Emergency
DX: G44.209 Tension-type headache, unspecified, not intractable (principal); M47.812 Spondylosis without myelopathy or radiculopathy, cervical region; R74.01 Elevation of levels of liver transaminase levels; R00.0 Tachycardia, unspecified
CPT/HCPCS: 80053; 80307; 93005; 96361; 96374; 99284; 70450; 72125; 81003; 84484; 85025; 93010; J1885

== ENCOUNTER 2024-07-01 18:09 | Outpatient (CLI) | payer OTHER, SELFPAY ==
--- NOTE | 2024-07-01 | DI.RAD_ITS ---
Exam(s) XR ELBOW RT COMPLETE EXAM: XR ELBOW RT COMPLETE CLINICAL HISTORY: m25.521 pain in right elbow. TECHNIQUE: 2D digital imaging was performed. COMPARISON: No exams were available for comparison FINDINGS: 3 views No obvious fracture nor prominent joint effusion. No swelling of the olecranon bursa. Bone density normal. No osseous lesions. No degenerative changes. No radiopaque foreign bodies. Epicondyles un remarkable. IMPRESSION: No acute osseous findings in the elbow. DATA REPOSITORY: RADIATION DOSE DELIVERED:
--- NOTE | 2024-07-01 19:08 | DI.[facility]_ITS ---
PROCEDURE INFORMATION: Exam: XR Right Elbow Exam date and time: 07/01/2024 6:19 PM Age: 38 years old Clinical indication: Other: Pain in right elbow TECHNIQUE: Imaging protocol: Radiologic exam of the right elbow. Views: 3 or more views. COMPARISON: No relevant prior studies available. FINDINGS: Bones/joints: No acute fracture or dislocation identified. No bony degenerative changes are evident. There are no periosteal reactions. There is no erosive change. Soft tissues: No soft tissue gas identified. There is minimal subcutaneous edema over the posterior distal humerus. There is no fat pad sign to suggest an underlying abnormal joint fluid collection. IMPRESSION: 1. No acute bony change identified. 2. Minimal soft tissue swelling over the posterior distal humerus without soft tissue gas or foreign body. Dictated and Authenticated by: Hung Dey MD. Ordering:ELIEL Meek MD
== END 2024-07-01 18:29 ==
PROVIDERS: Visit Provider Physician Assistant Medical
DX: M25.521 Pain in right elbow (principal)
CPT/HCPCS: 73080

== ENCOUNTER 2024-12-23 10:35 | Outpatient (REF) | payer OTHER, SELFPAY | END 2024-12-23 10:36 | disposition home or self-care (01) | LOC: LBN 10:35 | PROVIDERS: Referring Provider Nurse Practitioner Family; Visit Provider Nurse Practitioner Family | DX: T81.41XA Infection following a procedure, superficial incisional surgical site, initial encounter (principal) | CPT/HCPCS: 87077; 87070; 87075; 87186; 87205 ==

== ENCOUNTER 2025-06-05 10:19 | Outpatient (CLI) | payer OTHER, SELFPAY ==
--- NOTE | 2025-06-05 | DI.RAD_ITS ---
Exam(s) XR ELBOW LT COMPLETE EXAM: XR ELBOW LT COMPLETE CLINICAL HISTORY: left elbow pain, 2 cm palpable soft tissue lump ulnar aspect of elbow. TECHNIQUE: 2D digital imaging was performed of the left elbow. Three images were obtained. AP, lateral and oblique views were obtained. COMPARISON: CR,XR XR ELBOW RT COMPLETE from 07/01/2024 FINDINGS: BONES: No acute fracture is present. No bony destructive lesion is seen. JOINTS: The elbow is normally aligned. No joint effusion is seen. SOFT TISSUE: There is a tiny calcification adjacent to the olecranon on the soft tissues suggestive of calcific tendinitis. The soft tissues are otherwise unremarkable. IMPRESSION: 1. No acute abnormality. If there is continued concern for soft tissue mass, an MRI may be obtained for further evaluation. 2. The preliminary [facility] report was reviewed. DATA REPOSITORY: RADIATION DOSE DELIVERED:
--- NOTE | 2025-06-05 11:00 | DI.[facility]_ITS ---
PROCEDURE INFORMATION: Exam: XR Left Elbow Exam date and time: 06/05/2025 10:28 AM Age: 39 years old Clinical indication: Other: Left elbow pain, 2 cm palpable soft tissue lump ulnar aspect of elbow TECHNIQUE: Imaging protocol: Radiologic exam of the left elbow. Views: 3 or more views. COMPARISON: No relevant prior studies available. FINDINGS: Bones/joints: Degenerative changes in the humeroulnar joint. There is no evidence of acute fracture.There is no evidence of malalignment or dislocation. Soft tissues: Normal. IMPRESSION: There is no evidence of acute fracture.There is no evidence of malalignment or dislocation. Dictated and Authenticated by: Real Victoria MD. Orderin Clement Meek MD
== END 2025-06-05 10:39 ==
LOC: DI 10:19
PROVIDERS: Visit Provider Physician Assistant Medical
DX: M25.522 Pain in left elbow (principal)
CPT/HCPCS: 73080

== ENCOUNTER → 2025-08-16 18:44 | Outpatient (REF) | payer OTHER, SELFPAY ==
--- NOTE | 2025-08-16 19:23 | DI.RAD_ITS ---
Exam(s) XR LUMBAR SPINE COMPLETE EXAM: XR LUMBAR SPINE COMPLETE CLINICAL HISTORY: Chronic left-sided low back pain with sciatica left side. TECHNIQUE: 2D digital imaging was performed. COMPARISON: CT CT THORACIC LUMBAR SPINE WO from 01/06/2023 FINDINGS: Four views There is now tri level posterior fusion hardware at L4-5-S1 supported by bilateral intrapedicular screws at these 3 levels and relationship of the screws relative to the superior endplates is satisfactory. Posterior osseous elements at L4 and L5 have been surgically removed. No evidence of fracture. Amount of anterolisthesis of L5 upon S1 is similar to 01/06/2023. There is disc space narrowing again noted at L5-S1 level and minimal disc space narrowing at L4-5. L3-4 and levels above this exhibit normal disc height. There is no evidence of hardware fracture. No evidence of osteomyelitis. IMPRESSION: Posterior fusion hardware at L4-5-S1 as described above. No acute findings. If clinically indicated history here further study with MRI can be performed. DATA REPOSITORY: RADIATION DOSE DELIVERED:
--- NOTE | 2025-08-16 20:07 | DI.[facility]_ITS ---
PROCEDURE INFORMATION: Exam: XR Lumbosacral Spine Exam date and time: 08/16/2025 7:13 PM Age: 39 years old Clinical indication: Other: Chronic left-sided low back pain with sciatica left side; Prior surgery; Surgery date: 6+ months; Surgery type: L4, l5, s1 fusion in July 2023; Lumbago with sciatica, left side TECHNIQUE: Imaging protocol: Radiologic exam of the lumbosacral spine. Views: 4 or 5 views. COMPARISON: CT THORACIC LUMBAR SPINE WO 01/06/2023 3:25 PM FINDINGS: Bones/joints: There is no evidence of acute fracture.There is no evidence of malalignment or dislocation. Intervertebral disc spaces are maintained. Internal fixation device L4, L5, S1. Soft tissues: Unremarkable. IMPRESSION: 1. There is no evidence of acute fracture.There is no evidence of malalignment or dislocation. 2. Intervertebral disc spaces are maintained. 3. Internal fixation device L4, L5, S1. Dictated and Authenticated by: Real Victoria MD. Orderin GIANCARLO BRAMBILA MD
== END ==
LOC: DI 18:44
PROVIDERS: Visit Provider Nurse Practitioner Family
DX: M54.42 Lumbago with sciatica, left side (principal); M43.27 Fusion of spine, lumbosacral region
CPT/HCPCS: 72110